=== PATIENT | female | born 1960 | race Caucasian/White ===

== ENCOUNTER 2023-01-29 09:12 | Emergency (ER) | payer MEDICARE, SELFPAY ==
--- NOTE | ~2023-01-29 | XR_ITS ---
AP, oblique, and lateral views of the right fourth toe CLINICAL HISTORY: Injury FINDINGS: There is a probable oblique, nondisplaced fracture through the mid to distal shaft of the f ourth proximal phalanx. No other fracture or dislocation seen. Joint spaces are preserved. Soft tissu es are unremarkable. IMPRESSION: Probable oblique, nondisplaced fracture of the fourth proximal phalanx, as detailed above. Reviewed, dictated and finalized at location M. IMPRESSION: Probable oblique, nondisplaced fracture of the fourth proximal phalanx, as deta iled above.
[2023-01-29 09:16] VITALS: BP 137/65; PULSE 101; RESP 18; TEMP 36.4; O2SAT 99
--- NOTE | 2023-01-29 09:26 | ED.LOWEXIN ---
HPI - Extremity Injury (Lower) General Chief Complaint: Extremity Injury, Lower Stated Complaint: toe injury Time Seen by Provider: 01/29/23 09:21 History of Present Illness HPI Narrative: 62-year-old female reports for evaluation of right fourth toe pain after she stubbed it on a chair about an hour and a half prior to arrival. Patient was wearing flip-flops at the time of injury. She reports pain and ecchymosis to the right fourth toe with mild pain to the right fifth toe. Denies paresthesias, lacerations or abrasions. Patient took 1000 mg of Tylenol about 2 hours ago. She is unable to take NSAIDs due to history of gastric bypass. Related Data Allergies Allergy/AdvReac Type Severity Reaction Status Date / Time No Known Allergies Allergy Verified 01/29/23 09:18 Review of Systems Review of Systems: CONSTITUTIONAL: Denies fever, chills EYES: Denies visual changes, redness, or discharge. ENT: Denies rhinorrhea, congestion, sore throat, or otalgia. CARDIOVASCULAR: Denies chest pain, palpitations, or edema. RESPIRATORY: Denies cough or dyspnea. GASTROINTESTINAL: Denies abdominal pain, nausea, vomiting, or diarrhea. GENITOURINARY: Denies dysuria or hematuria. SKIN: Denies rash or itching. MUSCULOSKELETAL: See HPI NEUROLOGIC: Denies headache, numbness, dizziness, or weakness. PSYCHIATRIC: Denies anxiety or depression. Exam Narrative: GENERAL: Well-appearing, well-nourished, and in no acute distress. Patient resting comfortably in exam bed. She is pleasant and conversational. HEAD: Normocephalic, atraumatic. NECK: Supple. CHEST: Clear to auscultation. No respiratory distress. No wheezes rales or rhonchi HEART: Regular rate and rhythm. No murmur heard. Normal peripheral pulses. EXTREMITIES: Tenderness to the right fourth toe with overlying ecchymosis and tenderness to the distal aspect of the right fifth toe. No tenderness to remaining right foot or toes. Full range of motion of toes. No lacerations or abrasions. Cap refill less than 2. DP pulse 2+. Sensation intact. SKIN: Warm, dry, no rash. NEURO: No focal deficits. Alert and oriented x3. PSYCH: Normal mood and affect. Course Vital Signs Vital signs: Vital Signs Temperature 97.6 F 01/29/23 09:16 Pulse Rate 101 H 01/29/23 09:16 Respiratory Rate 18 01/29/23 09:16 Blood Pressure 137/65 01/29/23 09:16 Pulse Oximetry 99 01/29/23 09:16 Oxygen Delivery Room Air 01/29/23 09:16 Temperature 97.6 F 01/29/23 09:16 Pulse Rate 101 H 01/29/23 09:16 Respiratory Rate 18 01/29/23 09:16 Blood Pressure 137/65 01/29/23 09:16 Pulse Oximetry 99 01/29/23 09:16 Oxygen Delivery Room Air 01/29/23 09:16 MDM - Extremity Injury (Lower) MDM Narrative Medical decision making narrative: 62-year-old female reports for evaluation of right fourth toe pain after she stubbed it on a chair while wearing flip-flops about an hour 0.5 prior to arrival. Exam reveals ecchymosis and tenderness to the right fourth toe, no overlying lacerations or abrasions. X-ray reveals a probable oblique nondisplaced fracture of the fourth proximal phalanx. Patient placed in a postop shoe with toe lola taped. Advised to follow-up with primary care provider within the next 3 days for reevaluation. Encouraged Tylenol for pain control and RICE. Strict ED return precautions provided. patient agrees to the plan and verbalizes understanding. All questions answered. Vitals remained stable. Patient discharged in stable condition Discharge Plan Discharge Clinical Impression: Fracture of toe of right foot Qualifiers: Encounter type: initial encounter Toe: lesser toe Fracture type: closed Phalanx: proximal Fracture alignment: nondisplaced Qualified Code(s): S92.514A - Nondisplaced fracture of proximal phalanx of right lesser toe(s), initial encounter for closed fracture Patient Disposition: Home, Self-Care Condition: Stable Instructions: Antibiotic Form, Toe
== END 2023-01-29 10:45 | disposition home or self-care (01) ==
LOC: ANHED 10:13
PROVIDERS: Emergency Provider Physician Assistant; PCP Nurse Practitioner Family
DX: S92.514A Nondisplaced fracture of proximal phalanx of right lesser toe(s), initial encounter for closed fracture (principal); W22.03XA Walked into furniture, initial encounter
CPT/HCPCS: 73660; 99284

== ENCOUNTER 2023-07-04 16:01 | Emergency (ER) | payer MEDICARE, MEDICAID, SELFPAY ==
--- NOTE | ~2023-07-04 | XR_ITS ---
EXAM: XR hip LT 2V w AP pelvis DATE: 07/04/2023 16:43 HISTORY: fall . COMPARISON: None available. FINDINGS: Decreased mineralization. Partially visualized right hip arthroplasty. Uncomplicated appea ring left hip arthroplasty. No fracture or dislocation. Heterotopic bone formation and calcification about the left hip No lytic or blastic lesion. Joint spaces are maintained. No erosion or periosteal change. Soft tissues within normal limits. IMPRESSION: No acute osseous finding in the pelvis or left hip. Reviewed, dictated and finalized at location K.
--- NOTE | ~2023-07-04 | CT_ITS ---
EXAMINATION: CT lumbar spine wo con DATE: 07/04/2023 17:59 INDICATION: fall, midline tenderness . TECHNIQUE: Computed tomography (CT) of the lumbar spine was performed without intravenous contrast. A utomated exposure control and iterative reconstruction technique were employed. The dose-length produ ct was 1306.22 mGy-cm. COMPARISON: None. FINDINGS: Decreased mineralization. Partially visualized line at the GE junction. Right upper pole re nal scarring. Atherosclerotic calcifications. Unfused right L1 transverse process. 5 nonrib-bearing l umbar-type vertebral bodies. Pedicles intact. Normal vertebral body alignment. Mild anterior wedge de formity at L1. Multilevel mild-moderate degenerative disc disease. Multilevel severe lower lumbar fac et arthropathy no severe neural foraminal narrowing. Moderate central canal stenosis at L4-5, seconda ry to diffuse disc bulge and degenerative facet change. IMPRESSION: Mild anterior wedge deformity at L1, may represent acute or chronic mild compression fracture, correl ate with pain/tenderness Reviewed, dictated and finalized at location K. IMPRESSION: Mild anterior wedge deformity at L1, may represent acute or chronic mild compre ssion fracture, correlate with pain/tenderness
[2023-07-04 16:04] VITALS: BP 132/72; PULSE 82; RESP 18; TEMP 36.2; O2SAT 97
--- NOTE | 2023-07-04 17:05 | ED.GENADULT ---
HPI - General Adult General Chief complaint: Fall Stated complaint: left hip pain Time Seen by Provider: 07/04/23 16:09 Source: patient Mode of arrival: ambulatory Limitations: no limitations History of Present Illness HPI narrative: This is a 63-year-old female who presents to the ED with chief complaint of left hip injury that occurred just prior to arrival. Patient reports she was walking through her house today when she accidentally tripped on a rug. She states she tried to tense up to avoid the fall but she eventually fell backwards onto her left posterior hip/buttock area. She is a little bit of reported back pain as well but notes a known stress fracture in the back. Denies any pops or cracks. Denies any further site of pain or injury. Denies numbness, weakness. Related Data Home Medications Medication Instructions Recorded Confirmed aripiprazole 15 mg tablet mg 01/29/23 atorvastatin 20 mg tablet mg 01/29/23 escitalopram oxalate 10 mg tablet mg 01/29/23 hydroxyzine pamoate 25 mg capsule mg 01/29/23 levothyroxine 125 mcg tablet mcg 01/29/23 lorazepam 0.5 mg tablet mg 01/29/23 promethazine 25 mg tablet mg 01/29/23 quetiapine 25 mg tablet mg 01/29/23 trazodone 50 mg tablet mg 01/29/23 venlafaxine 150 mg mg PO 01/29/23 capsule,extended release 24 hr venlafaxine 75 mg capsule,extended mg PO 01/29/23 release 24 hr Allergies Allergy/AdvReac Type Severity Reaction Status Date / Time No Known Allergies Allergy Verified 01/29/23 09:18 Review of Systems Review of Systems: All systems as dictated in HPI Exam Narrative: GENERAL: Well-appearing, well-nourished, and in no acute distress. HEAD: Normocephalic, atraumatic. EYES: PERRLA and EOMI. ENT: Nares clear, no rhinorrhea or epistaxis. Mucous membranes moist. Oropharynx without tonsillar hypertrophy exudate or other lesions. NECK: Supple. No adenopathy or masses. CHEST: No respiratory distress. Clear to auscultation. No wheezes rales or rhonchi HEART: Regular rate and rhythm. No murmur heard. Normal peripheral pulses. ABDOMEN: Soft, nontender, nondistended, normal active bowel sounds. MSK: Slightly reduced passive range of motion of the left hip due to pain. Tenderness to the left posterior hip/buttock. Mild tenderness to the lumbar spine midline. No step-off or deformity. SKIN: Warm, dry, no rash. NEURO: Alert and oriented x3. No focal deficits. PSYCH: Normal mood and affect. Course Vital Signs Vital signs: Vital Signs Temperature 97.2 F L 07/04/23 16:04 Pulse Rate 82 07/04/23 16:04 Respiratory Rate 18 07/04/23 16:04 Blood Pressure 132/72 07/04/23 16:04 Pulse Oximetry 97 07/04/23 16:04 Temperature 97.2 F L 07/04/23 16:04 Pulse Rate 82 07/04/23 16:04 Respiratory Rate 18 07/04/23 16:04 Blood Pressure 132/72 07/04/23 16:04 Pulse Oximetry 97 07/04/23 16:04 Medical Decision Making MDM Narrative Medical decision making narrative: This is a 63-year-old female who presents to the ED with chief complaint of a fall and left posterior hip pain. Fall was mechanical. Vitals are normal. Exam shows tenderness along the left buttock and left SI. Mild lumbar tenderness as well. She has known history of L1 compression deformity. Hip x-ray shows intact left hip prosthesis. Overall the x-ray is negative for any acute findings. CT lumbar reveals evidence of the L1 compression deformity but again this is an unknown problem to her already. No new findings. She improved with [place] here. Symptoms consistent with hip pain due to fall. Pt will be discharged in stable condition. Return precautions given and supportive measures discussed. Pt is understanding and agreeable with plan for discharge and follow-up with PCP. Vital Signs Vital Signs: Vital Signs Temperature 97.2 F L 07/04/23 16:04 Pulse Rate 82 07/04/23 16:04 Respiratory Rate 18 07/04/23 16:04 Blood Pressure 132/72 10/0
[2023-07-04] MEDS: HYDROcodone/acetaminophen (*CRX) 5-325 MG TABLET 1 TAB PO (17:11)
[2023-07-04 18:43] VITALS: BP 143/82; PULSE 63; RESP 18; O2SAT 98
--- NOTE | 2023-07-04 18:46 | PC.NURSE ---
TERESA [facility], at [facility] called for report. She states a account maintenance representative will be over shortly to picker/puller pt to bring back to [place].
== END 2023-07-04 19:01 | disposition home or self-care (01) ==
PROVIDERS: Emergency Provider Physician Assistant; PCP Nurse Practitioner Family
DX: S79.912A Unspecified injury of left hip, initial encounter (principal); R93.7 Abnormal findings on diagnostic imaging of other parts of musculoskeletal system; W18.09XA Striking against other object with subsequent fall, initial encounter
CPT/HCPCS: 72131; 73502; 99284; A9270

== ENCOUNTER 2024-08-11 12:51 | Inpatient (IN) | payer MEDICARE, MEDICAID, SELFPAY ==
[2024-08-11] VITALS (18 sets, daily range): BP systolic 133–158; BP diastolic 64–87; PULSE 60–77; RESP 16–18; TEMP 36.4; O2SAT 92–100
--- NOTE | ~2024-08-11 | CT_ITS ---
CLINICAL INDICATION: Epigastric pain with diarrhea and emesis. Personal history of gastric bypass victor manuel silviano. COMPARISON: None. TECHNIQUE: Multiple contiguous axial images of the abdomen and pelvis were performed following the ad ministration of with 100 mL Omnipaque-350 intravenous contrast The dose-length product (DLP) was 1371.03 mGy-cm. Automated exposure control and iterative reconstruction technique were employed. FINDINGS/OBSERVATIONS: Visualized lower thorax: Trace bibasilar atelectasis. The heart is of normal size, without pericardial effusion. Small hiatal hernia, inclusive of a portion of the staple line from prior gastric bypass surgery. Liver: The liver is enlarged measuring 22 cm in longitudinal dimension. Focal fatty sparing is identified within segment 4/5 of the liver. Gallbladder and biliary system: The gallbladder is surgically absent. Pancreas: Fatty atrophy of the pancreas. Spleen: The spleen enhances homogeneously and is not enlarged measuring 10 cm in longitudinal dimension. Kidneys: The bilateral kidneys enhance symmetrically without hydronephrosis or renal calculi. Adrenal glands: Unremarkable. Gastrointestinal tract: Mural thickening with edema is identified throughout the colon with surrounding inflammatory change, consistent with a tavera colitis. Moderate hiatal hernia which is inclusive of a portion of the enteric staple line from prior gastric bypass surgery. The excluded stomach contains fluid and is primarily decompressed. Appendix: The appendix is minimally distended measuring 7.6 mm in caliber but contains air at its tip. This is best identified on axial images, 113 through 120. The increase in caliber and appearance of the proxi mal appendix is likely secondary to the inflammation within the colon, rather than a primarily inflam ed appendix. Vasculature: Bulky calcification within the abdominal aorta without aneurysmal dilatation. Lymph nodes: No pathologically enlarged or morphologically suspicious lymph nodes within the retroperitoneum or at the root of the mesentery. Pelvic structures: Evaluation of the deep pelvis is markedly limited by metallic streak artifact from the patient's bila teral hip prostheses. Body wall and musculoskeletal: Complex fat-containing hernia involving the supraumbilical abdominal wall. Compression of the superior endplate of L1 is identified, age indeterminate. Moderate facet hypertrophy is present. No additional significant degenerative disease within the remainder of the lower thoracic and lumbosa cral spines. IMPRESSION: Findings consistent with a pancolitis, as detailed above. In addition, the patient has a small hiatal hernia which includes a portion of the enteric staple esme e from prior gastric surgery. Reviewed, dictated and finalized at location A. GER LOCAL IMPRESSION: Findings consistent with a pancolitis, as detailed above. In addition, the patient has a small hiatal hernia which includes a portion of the enteric staple line from prior gastric surgery.
--- NOTE | 2024-08-11 14:53 | ED_ITS ---
HPI - Abdominal Pain General Chief Complaint: Abdominal Pain <Clara Walton APRN - Last Filed: 08/11/24 19:32> Stated Complaint: abd pain <lCara Walton APRN - Last Filed: 08/11/24 19:32> Time Seen by Provider: 08/11/24 14:45 <Clara Walton APRN - Last Filed: 08/11/24 19:32> Focused HPI: Patient is a 64-year-old female who presents to the ER with a 10 day history of abdominal pain. She describes her pain as hunger pains along with nausea. Patient also endorses diarrhea, and small amounts of emesis. She reports she went to urgent care yesterday where they gave her Zofran advised her to come to the ER if her symptoms do not improved. Patient has a history of hypothyroidism and COPD. She denies chest pain, shortness of breath, or other signs of infection. GENERAL: Well-appearing, well-nourished, and in no acute distress. HEAD: Normocephalic, atraumatic. CHEST: Clear to auscultation. ?No respiratory distress. HEART: Regular rate and rhythm.? NEURO: ?Alert and oriented x3. Patient screened in triage and initial orders placed.? ?Additional care and disposition to be based upon?diagnostic testing and treatment. <Clara Walton APRN - Last Filed: 08/11/24 19:32> History of Present Illness HPI narrative: patient is a 64-year-old female presents emergency department chief complaint of abdominal pain. Patient reports he has prior history of gastric bypass reports that she has also had a cholecystectomy patient reports that she has been having pain and reports that she feels nauseated. patient reports she has had loose stools reports that the vomitus was a bile colored vomit patient denies fever <Obed Sanchez MD - Last Filed: 08/11/24 17:04> Related Data Home Medications: Home Medications Medication Instructions Recorded Confirmed aripiprazole 15 mg tablet mg 01/29/23 atorvastatin 20 mg tablet mg 01/29/23 escitalopram oxalate 10 mg tablet mg 01/29/23 hydroxyzine pamoate 25 mg capsule mg 01/29/23 levothyroxine 125 mcg tablet mcg 01/29/23 lorazepam 0.5 mg tablet mg 01/29/23 promethazine 25 mg tablet mg 01/29/23 quetiapine 25 mg tablet mg 01/29/23 trazodone 50 mg tablet mg 01/29/23 venlafaxine 150 mg mg PO 01/29/23 capsule,extended release 24 hr venlafaxine 75 mg capsule,extended mg PO 01/29/23 release 24 hr <Clara Walton APRN - Last Filed: 08/11/24 19:32> Allergies/Adverse Reactions: Allergies Allergy/AdvReac Type Severity Reaction Status Date / Time No Known Allergies Allergy Verified 08/11/24 12:55 <Clara Walton APRN - Last Filed: 08/11/24 19:32> Review of Systems Review of Systems: A 10 system review of systems was completed on the patient and is negative except for what is stated in the HPI. Nursing and ancillary documentation was reviewed. <Obed Sanchez MD - Last Filed: 08/11/24 17:04> Exam Narrative: GENERAL: Well-appearing, well-nourished, and in no acute distress. HEAD: Normocephalic, atraumatic. EYES: PERRLA and EOMI. ENT: Nares clear, no rhinorrhea or epistaxis. Mucous membranes moist. NECK: Supple. CHEST: Clear to auscultation. No respiratory distress. HEART: Regular rate and rhythm. No murmur heard. Normal peripheral pulses. ABDOMEN: Soft, diffuse tenderness to palpation, nondistended, normal active bowel sounds. EXTREMITIES: Normal range of motion. No edema. SKIN: Warm, dry, no rash. NEURO: No focal deficits. Alert and oriented x3. PSYCH: Normal mood and affect. <Obed Sanchez MD - Last Filed: 08/11/24 17:04> Course Vital Signs Vital signs: Vital Signs Temperature 36.4 C 08/11/24 12:53 Pulse Rate 77 08/11/24 12:53 Respiratory Rate 16 08/11/24 12:53 Blood Pressure 139/70 08/11/24 12:53 Pulse Oximetry 99 08/11/24 12:53 Oxygen Delivery Room Air 08/11/24 12:53 Temperature 36.4 C 08/11/24 12:53 Pulse Rate 60 08/11/24 18:32 Respiratory Rate 18 08/11/24 18:32 Blood Pressure 135/75 08/11/24 18:32 Pulse Oximetry 100 08/11/24 18:32 Oxygen Delivery Room Air 08/11/24 12:53 <Clara Walton, [employer] - Last Filed: 08/11/24 19:32> Vital Signs Temperature 36.4 C 08/11/24 12:53 Pulse Rate 77 08/11/24 12:53 Respiratory Rate 16 08/11/24 12:53 Blood Pressure 139/70 08/11/24 12:53 Pulse Oximetry 99 08/11/24 12:53 Oxygen Delivery Room Air 08/11/24 12:53 Temperature 36.4 C 08/11/24 12:53 Pulse Rate 60 08/11/24 18:32 Respiratory Rate 18 08/11/24 18:32 Blood Pressure 135/75 08/11/24 18:32 Pulse Oximetry 100 08/11/24 18:32 Oxygen Delivery Room Air 08/11/24 12:53 <Obed Sanchez MD - Last Filed: 08/11/24 17:04> MDM - Abdominal Pain Lab Data Result diagrams: 08/11/24 16:34 08/11/24 16:34 <Calra Walton, KEERTHI - Last Filed: 08/11/24 19:32> Labs: Lab Results 08/11/24 Range/Units 16:34 WBC 7.0 (4.5-10.0) K/mm3 RBC 4.68 (4.2-5.4) M/mm3 Hgb 14.9 (12.0-15.0) g/dL Hct 45.0 (37.0-47.0) % MCV 96.2 (80-100) fl MCH 31.8 (26-34) pg MCHC 33.1 (32-36) g/dl RDW 13.7 (11.5-14.5) % Plt Count 297 (150-375) k/mm3 MPV 10.0 (7.4-10.4) fl Immature Gran % (Auto) 0.4 (0-0.5) % Neut % (Auto) 58.1 (45.5-73.1) % Lymph % (Auto) 32.2 (18.3-44.2) % [place] % (Auto) 8.0 (2.6-8.5) % Eos % (Auto) 1.0 (0-4.4) % Baso % (Auto) 0.3 (0.2-1.2) % Lymph # (Auto) 2.26 (0.9-3.2) K/mm3 [place] # (Auto) 0.6 (0.1-0.6) K/mm3 Eos # (Auto) 0.1 (0-0.3) K/mm3 Baso # (Auto) 0.0 (0.0-0.1) K/mm3 Abs Immat Gran (auto) 0.03 (0.00-0.031) K/mm3 Absolute Neuts (auto) 4.1 (1.3-6.7) K/mm3 Absolute Nucleated RBC 0.000 (0.0-0.012) K/mm3 Nucleated RBC % 0.0 (0.0-0.2) % PT 12.9 (11.1-14.7) Seconds INR 0.9 APTT 31.0 (22.3-36.8) Seconds Sodium 135 L (137-145) mmol/L Potassium 4.0 (3.4-5.0) mmol/L Chloride 106 (98-107) mmol/L Carbon Dioxide 22 (22-30) mmol/L Anion Gap 7 (4-12) mmol/L BUN 11 (7-17) mg/dL Creatinine 1.00 (0.7-1.0) mg/dL Estim Creat Clear Calc 69 ml/min Estimated GFR 56 L (59 - ) Glucose 101 (65-110) mg/dL Calcium 9.4 (8.4-10.2) mg/dL Total Bilirubin 0.6 (0.2-1.3) mg/dL AST 32 (14-36) U/L ALT 22 (6-35) U/L Alkaline Phosphatase 120 (38-126) U/L Troponin I < 0.012 (0.000-0.034) ng/mL Total Protein 8.0 (6.3-8.2) g/dL Albumin 4.4 (3.5-5.1) g/dL Lipase 98 (23-300) U/L TSH (Reflex) 5.800 H (0.465-4.68) uIU/mL Free T4 1.31 (0.78-2.19) ng/dL Total T3 1.12 (0.97-1.69) NG/ML Urine Color Dark yellow (Yellow) Urine Appearance Cloudy H (Clear) Urine pH 5.5 (5.0-9.0) Ur Specific [place] 1.022 (1.001-1.035) Urine Protein Negative (Negative) mg/dL Urine Glucose (UA) Negative (Negative) mg/dL Urine Ketones 1+ H (Negative) mg/dL Ur Blood (Man) Negative (Negative) Urine Nitrate Negative (Negative) Urine Bilirubin 1+ H (Negative) Urine Urobilinogen 1.0 (<2.0) mg/dL Add Ur Microanalysis Reviewed Leukocyte Esterase Rfl 2+ H (Negative) [place]/UL Urine RBC 0-2 (0-2) /hpf Urine WBC 21-50 H (0-3) /hpf Ur Squamous Epith Cells Moderate (Few) /hpf Urine Bacteria 3+ H /hpf Urine Casts 11-20 <Clara Walton, [employer] - Last Filed: 08/11/24 19:32> Lab Results 08/11/24 Range/Units 16:34 WBC 7.0 (4.5-10.0) K/mm3 RBC 4.68 (4.2-5.4) M/mm3 Hgb 14.9 (12.0-15.0) g/dL Hct 45.0 (37.0-47.0) % MCV 96.2 (80-100) fl MCH 31.8 (26-34) pg MCHC 33.1 (32-36) g/dl RDW 13.7 (11.5-14.5) % Plt Count 297 (150-375) k/mm3 MPV 10.0 (7.4-10.4) fl Immature Gran % (Auto) 0.4 (0-0.5) % Neut % (Auto) 58.1 (45.5-73.1) % Lymph % (Auto) 32.2 (18.3-44.2) % [place] % (Auto) 8.0 (2.6-8.5) % Eos % (Auto) 1.0 (0-4.4) % Baso % (Auto) 0.3 (0.2-1.2) % Lymph # (Auto) 2.26 (0.9-3.2) K/mm3 [place] # (Auto) 0.6 (0.1-0.6) K/mm3 Eos # (Auto) 0.1 (0-0.3) K/mm3 Baso # (Auto) 0.0 (0.0-0.1) K/mm3 Abs Immat Gran (auto) 0.03 (0.00-0.031) K/mm3 Absolute Neuts (auto) 4.1 (1.3-6.7) K/mm3 Absolute Nucleated RBC 0.000 (0.0-0.012) K/mm3 Nucleated RBC % 0.0 (0.0-0.2) % PT 12.9 (11.1-14.7) Seconds INR 0.9 APTT 31.0 (22.3-36.8) Seconds Sodium 135 L (137-145) mmol/L Potassium 4.0 (3.4-5.0) mmol/L Chloride 106 (98-107) mmol/L Carbon Dioxide 22 (22-30) mmol/L Anion Gap 7 (4-12) mmol/L BUN 11 (7-17) mg/dL Creatinine 1.00 (0.7-1.0) mg/dL Estim Creat Clear Calc 69 ml/min Estimated GFR 56 L (59 - ) Glucose 101 (65-110) mg/dL Calcium 9.4 (8.4-10.2) mg/dL Total Bilirubin 0.6 (0.2-1.3) mg/dL AST 32 (14-36) U/L ALT 22 (6-35) U/L Alkaline Phosphatase 120 (38-126) U/L Troponin I < 0.012 (0.000-0.034) ng/mL Total Protein 8.0 (6.3-8.2) g/dL Albumin 4.4 (3.5-5.1) g/dL Lipase 98 (23-300) U/L TSH (Reflex) 5.800 H (0.465-4.68) uIU/mL Free T4 1.31 (0.78-2.19) ng/dL Total T3 1.12 (0.97-1.69) NG/ML Urine Color Dark yellow (Yellow) Urine Appearance Cloudy H (Clear) Urine pH 5.5 (5.0-9.0) Ur Specific [place] 1.022 (1.001-1.035) Urine Protein Negative (Negative) mg/dL Urine Glucose (UA) Negative (Negative) mg/dL Urine Ketones 1+ H (Negative) mg/dL Ur Blood (Man) Negative (Negative) Urine Nitrate Negative (Negative) Urine Bilirubin 1+ H (Negative) Urine Urobilinogen 1.0 (<2.0) mg/dL Add Ur Microanalysis Reviewed Leukocyte Esterase Rfl 2+ H (Negative) [facility]/UL Urine RBC 0-2 (0-2) /hpf Urine WBC 21-50 H (0-3) /hpf Ur Squamous Epith Cells Moderate (Few) /hpf Urine Bacteria 3+ H /hpf Urine Casts 11-20 <Obed Sanchez MD - Last Filed: 08/11/24 17:04> Imaging Data Radiologist's impression: ITS Impressions Abdomen/Pelvis CT 08/11/24 17:34 IMPRESSION: Findings consistent with a pancolitis, as detailed above. In addition, the patient has a small hiatal hernia which includes a portion of the enteric staple line from prior gastric surgery. <Clara Walton APRN - Last Filed: 08/11/24 19:32> ITS Impressions Abdomen/Pelvis CT 08/11/24 17:34 IMPRESSION: Findings consistent with a pancolitis, as detailed above. In addition, the patient has a small hiatal hernia which includes a portion of the enteric staple line from prior gastric surgery. <Obed Sanchez MD - Last Filed: 08/11/24 17:04> Discharge Plan Discharge Clinical Impression: Urinary tract infection <Clara Walton APRN - Last Filed: 08/11/24 19:32> Patient Disposition: Home, Self-Care <Clara Walton APRN - Last Filed: 08/11/24 19:32> Condition: Stable <Clara Walton APRN - Last Filed: 08/11/24 19:32> Instructions: Antibiotic Form <Clara Walton APRN - Last Filed: 08/11/24 19:32> Prescriptions: No Action quetiapine 25 mg tablet venlafaxine 75 mg capsule,extended release 24hr PO atorvastatin 20 mg tablet trazodone 50 mg tablet venlafaxine 150 mg capsule,extended release 24hr PO lorazepam 0.5 mg tablet levothyroxine 125 mcg tablet promethazine 25 mg tablet hydroxyzine pamoate 25 mg capsule escitalopram oxalate 10 mg tablet aripiprazole 15 mg tablet <Clara Walton APRN - Last Filed: 08/11/24 19:32> Follow-up/Referrals: Garza,Ni Gupta APRN [Primary Care Provider] - <Clara Walton APRN - Last Filed: 08/11/24 19:32>
[2024-08-11 16:41] LABS: Basophils Percent Auto 0.3 % (0.2-1.2); Eosinophils Absolute Auto 0.1 K/mm3 (0-0.3); Hemoglobin 14.9 g/dL (12.0-15.0); Immature Granulocyte Absolute 0.03 K/mm3 (0.00-0.031); Immature Granulocyte Percent A 0.4 % (0-0.5); Lymphocytes Absolute Auto 2.26 K/mm3 (0.9-3.2); Lymphocytes Percent Auto 32.2 % (18.3-44.2); Mean Corpuscular HGB Conc 33.1 g/dl (32-36); Mean Corpuscular Hemoglobin 31.8 pg (26-34); Mean Corpuscular Volume 96.2 fl (80-100); Monocytes Absolute Auto 0.6 K/mm3 (0.1-0.6); Neutrophils Absolute Auto 4.1 K/mm3 (1.3-6.7); Neutrophils Percent Auto 58.1 % (45.5-73.1); Platelet Count Result 297 k/mm3 (150-375); Red Blood Count 4.68 M/mm3 (4.2-5.4); Red Cell Distribution Width 13.7 % (11.5-14.5)
[2024-08-11 16:51] LABS: Alanine Aminotransferase 22 U/L (6-35); Albumin Level 4.4 g/dL (3.5-5.1); Alkaline Phosphatase 120 U/L (38-126); Anion Gap 7 mmol/L (4-12); Aspartate Amino Transferase 32 U/L (14-36); Bilirubin,Total 0.6 mg/dL (0.2-1.3); Blood Urea Nitrogen 11 mg/dL (7-17); Calcium 9.4 mg/dL (8.4-10.2); Carbon Dioxide 22 mmol/L (22-30); Chloride 106 mmol/L (98-107); Estimated CRCL calculation 69 ml/min; Estimated Glomerular Filt Rate 56; Glucose 101 mg/dL (65-110); Lipase 98 U/L (23-300); Sodium 135 mmol/L (137-145)
[2024-08-11 16:52] LABS: INR 0.9; Prothrombin Time 12.9 Seconds (11.1-14.7)
[2024-08-11 17:03] LABS: Troponin I < 0.012 ng/mL (0.000-0.034)
[2024-08-11 17:10] LABS: Add Urine Microscopic? YES; Appearance Urine Cloudy (Clear); Bacteria Urine 3+ /hpf; Bilirubin Urine 1+ (Negative); Blood Urine Negative (Negative); Color Urine Dark Yellow (Yellow); Glucose Urine UA Negative (Negative); Ketones Urine 1+ mg/dL (Negative); Leukocyte Esterase Ur 2+ LEU/UL (Negative); Need Manual Microscopic Reviewed; Nitrate Urine Negative (Negative); Protein Urine Negative (Negative); RBC Urine 0-2 /hpf (0-2); Specific Grav Ur 1.022 (1.001-1.035); Squamous Epithelial Cell Urine Moderate /hpf (Few); WBC Urine 21-50 /hpf (0-3); pH Urine 5.5 (5.0-9.0)
--- NOTE | 2024-08-11 17:11 | PC.NURSE ---
patient to CT
[2024-08-11] MEDS: SODIUM CHLORIDE 0.9% IV 1,000 ML 999 ML IV CONT (17:22)
[2024-08-11] MEDS: PANTOPRAZOLE SODIUM IV 40 MG VIAL IV PUSH (17:22)
[2024-08-11] MEDS: ONDANSETRON INJ 4 MG/2 ML VIAL IV PUSH (17:22)
[2024-08-11 18:04] LABS: Free T4 Free Thyroxine Reflex 1.31 ng/dL (0.78-2.19)
[2024-08-11 18:44] LABS: Total Triiodothyronine (T3) 1.12 NG/ML (0.97-1.69)
--- NOTE | 2024-08-11 19:16 | PC.NURSE ---
Report received from TERESA Grewal. Assumed care of patient at this time.
--- NOTE | 2024-08-11 19:45 | PM.IMHP ---
H&P: HPI History of Present Illness Date/Time: 08/11/24 19:00 Chief Complaint: Abdominal pain. Narrative: This is a 64-year-old female with history of gastric stapling in 1994, hypothyroidism, anxiety, depression, posttraumatic stress disorder, and suicide attempt who presented to the emergency department via private vehicle for evaluation of abdominal pain. The patient provides the following history. She has not been feeling well for about 10 days and describes ongoing periumbilical abdominal discomfort which she describes as ?almost like hunger pains? associated with nausea and intermittent loose stools. She has not noticed any blood or mucus in the stools. She denies recent travel, antibiotic use, and sick contacts. She also denies fever, chills, sweats, epigastric pain, vomiting, and dysuria. Of note the patient's [place] Scale was elevated due to history of depression and suicide attempt. She has no thoughts of suicide or other harmful thoughts. In the ED: She was afebrile on arrival with stable vital signs. CMP and CBC were pretty unremarkable door sodium was a bit low 135. Urinalysis was positive for 1+ protein, 2+ leukocyte esterase, 21 to 50 WBC, 3+ bacteria, and moderate squamous cells. CT of the abdomen and pelvis showed findings consistent with pancolitis and a small hiatal hernia which includes a portion of the enteric stable and from prior gastric surgery. She was given a L of normal saline and was started on ceftriaxone and metronidazole. She is being admitted in this setting for further treatment and workup. Review of Systems Review of Systems: 12 systems were reviewed and are negative except for as per HPI. FORMERLY [facility] Past Medical History Medical History (Updated 08/12/24 @ 13:25 by Beryl Roberts PA-C) Depression with anxiety Hypothyroidism Posttraumatic stress disorder Suicide attempt Surgical History Surgical History (Updated 08/12/24 @ 13:25 by Beryl Roberts PA-C) History of bilateral hip arthroplasty History of cholecystectomy History of gastric stapling Family History Family History Father Alcohol abuse Mother COPD (chronic obstructive pulmonary disease) Social History Social History (Updated 08/12/24 @ 13:25 by Berly Roberts PA-C) Social History: Surrogate medical decision maker: Glen Prince, significant other. Code status: Full code. Smoking status: Former smoker Tobacco type: cigarettes Alcohol intake: never Substance use: current Substance use type: marijuana Other substance usage details: daily for pain Do You Feel Safe in your Home?: Yes Lack of Transportation: No Lack of Food: Never True Current Housing: I Have Housing Concerned About Future Housing: No Difficulty Paying Gas/Electric Bills: No Difficulty Paying for Meds: No Currently Unemployed: No Education: High School Diploma/GED Difficulty w/ Childcare or Family Care: No Spiritual care concerns: No Meds Home Medications and Allergies Home Medications Medication Instructions Recorded Confirmed Type acetaminophen 325 mg tablet 650 mg PO PRN PRN Pain (Scale 08/11/24 08/11/24 History Score 1-3) albuterol sulfate 90 mcg/actuation 2 inh inhalation PRN 08/11/24 08/11/24 History aerosol inhaler aspirin 81 mg tablet 81 mg PO DAILY 08/11/24 08/11/24 History budesonide-formoterol HFA 160 1 inh inhalation BID 08/11/24 08/11/24 History mcg-4.5 mcg/actuation aerosol inhaler (Symbicort) clonazepam 0.5 mg tablet 0.5 mg PO DAILY 08/11/24 08/11/24 History levothyroxine 150 mcg tablet 150 mcg PO DAILY 08/11/24 08/11/24 History multivitamin with minerals-folic 1 tablet PO DAILY 08/11/24 08/11/24 History acid 0.4 mg tablet oxybutynin chloride 5 mg 5 mg PO DAILY 08/11/24 08/11/24 History tablet,extended release 24 hr vilazodone 40 mg tablet 40 mg PO DAILY 08/11/24 08/11/24 History Allergies Allergy/AdvReac Type Severity Reaction Status Date / Time No Known Allergies Allergy Verified 08/11/24 12:55 Vital Signs Vital Signs - 24 hr 08/11/24 12:53 08/11/24 16:42 08/11/24 16:42 Temperature 97.6 F Pulse Rate 77 73 Respiratory Rate 16 18 Blood Pressure 139/70 158/86 H Pulse Oximetry 99 96 98 Oxygen Delivery Room Air 08/11/24 16:45 08/11/24 16:47 08/11/24 17:00 Temperature Pulse Rate Respiratory Rate Blood Pressure 153/79 H Pulse Oximetry 92 96 95 Oxygen Delivery 08/11/24 17:25 08/11/24 17:30 08/11/24 17:32 Temperature Pulse Rate Respiratory Rate Blood Pressure 140/64 Pulse Oximetry 98 96 94 Oxygen Delivery 08/11/24 17:45 08/11/24 17:47 08/11/24 18:00 Temperature Pulse Rate Respiratory Rate Blood Pressure 133/65 Pulse Oximetry 95 96 98 Oxygen Delivery 08/11/24 18:01 08/11/24 18:15 08/11/24 18:30 Temperature Pulse Rate Respiratory Rate Blood Pressure 141/65 H Pulse Oximetry 100 94 97 Oxygen Delivery 08/11/24 18:32 Temperature Pulse Rate 60 Respiratory Rate 18 Blood Pressure 135/75 Pulse Oximetry 100 Oxygen Delivery Exam Narrative: General: Nontoxic-appearing female sitting up in bed. Weight: 125 kg. BMI: 44.5. HEENT: PERRL, EOMI. Sclera anicteric. Oral mucosa moist. Tacky mucous membranes. Neck: Supple. Respiratory: Lungs are clear to auscultation bilaterally. Cardiovascular: Regular rate and rhythm with S1-S2. Gastrointestinal: Abdomen is soft and nondistended with positive bowel sounds. She slightly tender to palpation the periumbilical region. No voluntary guarding or rebound tenderness. Skin: Warm and dry. Extremities: No cyanosis, clubbing, or edema. Radial and pedal pulses intact. Neurological: Alert. Cranial nerves 2-12 are grossly intact. No gross focal deficits to casual conversation. Psychiatric: Pleasant and cooperative with appropriate mood and flat affect. H&P: Results Labs Labs: Short CBC 08/11/24 Range/Units 16:34 WBC 7.0 (4.5-10.0) K/mm3 Hgb 14.9 (12.0-15.0) g/dL Hct 45.0 (37.0-47.0) % Plt Count 297 (150-375) k/mm3 BMP 08/11/24 16:34 Sodium 135 L Potassium 4.0 Chloride 106 Carbon Dioxide 22 BUN 11 Creatinine 1.00 Glucose 101 Calcium 9.4 Cardiac Enzymes 08/11/24 Range/Units 16:34 Troponin I < 0.012 (0.000-0.034) ng/mL Liver Function 08/11/24 Range/Units 16:34 Total Bilirubin 0.6 (0.2-1.3) mg/dL AST 32 (14-36) U/L ALT 22 (6-35) U/L Alkaline Phosphatase 120 (38-126) U/L Albumin 4.4 (3.5-5.1) g/dL Urine 08/11/24 Range/Units 16:34 Urine Color Dark yellow (Yellow) Urine Appearance Cloudy H (Clear) Urine pH 5.5 (5.0-9.0) Ur Specific [place] 1.022 (1.001-1.035) Urine Protein Negative (Negative) mg/dL Urine Glucose (UA) Negative (Negative) mg/dL Imaging Abdomen/Pelvis CT 08/11/24 17:34 IMPRESSION: Findings consistent with a pancolitis, as detailed above. In addition, the patient has a small hiatal hernia which includes a portion of the enteric staple line from prior gastric surgery. Assessment and Plan Assessment and plan (1) Pancolitis: Code(s): K51.00 - Ulcerative (chronic) pancolitis without complications Status: Acute (2) Mild dehydration: Code(s): E86.0 - Dehydration Status: Acute (3) Bacteriuria with pyuria: Code(s): R82.71 - Bacteriuria; R82.81 - Pyuria Status: Acute (4) Depression with anxiety: Code(s): F41.8 - Other specified anxiety disorders Status: Acute (5) Posttraumatic stress disorder: Code(s): F43.10 - Post-traumatic stress disorder, unspecified Status: Acute (6) Hypothyroidism: Code(s): E03.9 - Hypothyroidism, unspecified Status: Acute Plan The patient presented to the emergency department for evaluation of ongoing abdominal discomfort for the past 10 days as detailed in HPI. Labs, imaging, EKG, and all reports were personally reviewed. CT scan shows evidence of pancolitis and she has been started on ceftriaxone and metronidazole per antibiotic stewardship recommendations. Stool studies are pending. She looks dry on exam and by labs and will be hydrated overnight. WBCs and bacteria were noted on urine microscopy however she has no urinary symptoms and the specimen looks contaminated. Vital signs were reviewed and they are stable. Continue levothyroxine and check TSH. She reports that her anxiety, depression, and PTSD are well controlled on home medications and she has no harmful thoughts. Her home medications will be reviewed and resumed as appropriate. Findings and treatment plan were discussed with the patient. Questions were solicited and answered to satisfaction. The patient's medical management will be taken over by the hospitalist team in a.m. Quality VTE Prophylaxis VTE prophylaxis: mechanical ordered The patient has been admitted under observation status. Hospitalist MIPS Advance Care Plan I have confirmed that the patient's Advanced Care Plan is present, code status is documented, or surrogate decision maker is listed in patient medical record.: Yes Medication Reconciliation I have utilized all available resources to obtain, update and review the patients current medications (includes all prescriptions, OTC, herbals, cannabis, and nutritional supplements).: Yes
[2024-08-11] MEDS: metroNIDAZOLE 500 MG/ISO 100ML 500 MG/100 ML BAG 100 MG IVPB (19:50)
[2024-08-11] MEDS: MORPHINE SULFATE (*CRX) 4 MG/ML INJ IV PUSH ×2 (19:55→23:43)
--- NOTE | 2024-08-11 20:42 | ADMGEN ---
This patient, Joy Charles, was admitted to Medical Room 255-01. Patient/family oriented to hospital policies and general routines including ID bracelet, bed and alarms, visiting hours, pain management, procedures, bathroom and other care routines, personal items, smoking policy, room service/diet, and visiting hours. Information on how to activate the Rapid Response Team has been discussed. Patient/Family are encouraged to report perceived risks to care and to ask questions if they do not understand what they are told or what they should do.
[2024-08-11] MEDS: clonazePAM (*CRX) 0.5 MG TABLET 1 MG PO (21:45)
[2024-08-11] MEDS: DEXTROSE 5%/0.9% SOD CHL 1,000 ML 100 ML IV CONT (23:53)
[2024-08-12 05:10] VITALS: BP 118/64; PULSE 61; RESP 20; TEMP 36.5; O2SAT 97
[2024-08-12] MEDS: LEVOTHYROXINE SODIUM 150 MCG TABLET PO (05:37)
[2024-08-12] MEDS: ACETAMINOPHEN 325 MG TABLET 650 MG PO (05:37)
[2024-08-12] MEDS: metroNIDAZOLE 500 MG/ISO 100ML 500 MG/100 ML BAG 100 MG IVPB ×3 (05:37→21:10)
[2024-08-12 05:43] LABS: Hemoglobin 13.5 g/dL (12.0-15.0); Mean Corpuscular HGB Conc 32.1 g/dl (32-36); Mean Corpuscular Hemoglobin 31.9 pg (26-34); Mean Corpuscular Volume 99.3 fl (80-100); Mean Platelet Volume 10.1 fl (7.4-10.4); Platelet Count Result 223 k/mm3 (150-375); Red Blood Count 4.23 M/mm3 (4.2-5.4); Red Cell Distribution Width 13.7 % (11.5-14.5); White Blood Count 4.1 K/mm3 (4.5-10.0)
[2024-08-12 05:55] LABS: Anion Gap 4 mmol/L (4-12); Blood Urea Nitrogen 9 mg/dL (7-17); Calcium 8.5 mg/dL (8.4-10.2); Carbon Dioxide 27 mmol/L (22-30); Chloride 107 mmol/L (98-107); Estimated CRCL calculation 76 ml/min; Estimated Glomerular Filt Rate > 60; Glucose 111 mg/dL (65-110); Magnesium 2.2 mg/dL (1.6-2.3); Potassium 3.8 mmol/L (3.4-5.0); Sodium 138 mmol/L (137-145)
[2024-08-12] MEDS: clonazePAM (*CRX) 0.5 MG TABLET PO (08:57)
[2024-08-12] MEDS: ASPIRIN 81 MG ENTERIC TABLET PO (08:57)
[2024-08-12] MEDS: oxyBUTYnin CHLORIDE XL 5 MG TAB.ER.24 PO (08:57)
[2024-08-12] MEDS: FLUTICASONE/SALMETEROL 115-21 MCG INHALER 1 PUFF 2 PUFF INHALATION (09:02)
[2024-08-12] MEDS: MORPHINE SULFATE (*CRX) 4 MG/ML INJ 2 MG IV PUSH (11:26)
[2024-08-12] MEDS: ONDANSETRON INJ 4 MG/2 ML VIAL IV PUSH ×2 (12:14→21:13)
--- NOTE | 2024-08-12 13:09 | PHAR ---
The patient's home med of Vilazodone 40mg has been verified.
[2024-08-12] MEDS: VILAZODONE 40 MG PO (13:35)
[2024-08-12] MEDS: [UNRECOGNIZED DRUG - OTHER] PO (13:35)
[2024-08-12 14:00] VITALS: BP 120/72; PULSE 64; RESP 18; TEMP 36.4; O2SAT 96
[2024-08-12] MEDS: SODIUM CHLORIDE 0.9% IV 1,000 ML 75 ML IV CONT (15:27)
[2024-08-12] MEDS: HYDROmorphone HCL INJ (*CRX) 1 MG/ML SYR IV PUSH ×2 (15:34→21:14)
--- NOTE | 2024-08-12 16:35 | P.PNIM_ITS ---
Progress Note: A&P Assessment and Plan (1) Pancolitis: Code(s): K51.00 - Ulcerative (chronic) pancolitis without complications Status: Acute Assessment and Plan: * CT abdomen showing pancolitis * Flagyl and Rocephin * Pain control * IV fluids * PPI * WBC 4.1, afebrile * Stool studies pending * Monitor electrolytes replenish as needed (2) Mild dehydration: Code(s): E86.0 - Dehydration Status: Acute Assessment and Plan: RESOLVED with IV fluids (3) Depression with anxiety: Code(s): F41.8 - Other specified anxiety disorders Status: Acute Assessment and Plan: * Resumed home medications * HX of suicidal attempt * current MDR treatment * extrememly anxious * Antianxiety medication added as needed (4) Posttraumatic stress disorder: Code(s): F43.10 - Post-traumatic stress disorder, unspecified Status: Acute Assessment and Plan: * Current MDR treatment * resumed home medications * daily [place]umb[place] scale (5) Hypothyroidism: Code(s): E03.9 - Hypothyroidism, unspecified Status: Acute Assessment and Plan: * Resume levothyroxine Plan Code status: Full code per patient DVT prophylaxis: SCDs Stress ulcer prophylaxis: Protonix 40 daily PT/OT notes: Ambulatory Disposition: Patient admitted for pain colitis will continue with IV antibiotic therapy and pain control currently unable to tolerate oral intake well since pain is controlled and patient can not tolerate oral intake she can discharged home. Time Spent With Patient Time with patient: 15 - 25 minutes Subjective Date/time seen: 08/12/24 16:35 Interval history: Patient is a 64-year-old female admitted to the medical unit for further evaluation and treatment of pancolitis. 08/12/2024: Assumed Care Patient tearful suffers from MDD and PTSD going through current MDR treatment. She is still reporting moderate ABD pain and unable to tolerate oral intake. Denied CP, SOB, dizziness, fever or chills but endorsed nausea no vomiting. Continues to have diarrhea. Review of Systems Review of Systems: Reports severe anxiety All systems reviewed & are unremarkable except as noted in HPI and below Exam Narrative: * GENERAL: Alert and oriented x 3. No acute distress. Tearful and anxious pleasant female * EYES: EOMI. No scleral icterus. PERRLA. * HEENT: Moist mucous membranes. * LUNGS: Clear to auscultation bilaterally. No accessory muscle use. * CARDIOVASCULAR: Regular rate and rhythm. No murmur. No JVD. S1-S2 * ABDOMEN: Soft, tenderness and non-distended. No palpable masses. * EXTREMITIES: No edema. Non-tender * SKIN: No rashes or lesions. Skin warm, dry. * NEUROLOGIC: No focal neurological deficits. CN II-XII grossly intact * PSYCHIATRIC: Tearful mood and withdrawn affect. Good judgement and insight. No visual or auditory hallucinations. No suicidal or homicidal ideation. Previous suicidal attempt and HX of PTSD Objective Data Vital Signs Vital Signs: Vital Signs - 24 hr 08/11/24 16:42 08/11/24 16:42 08/11/24 16:45 Temperature Pulse Rate 73 Respiratory Rate 18 Blood Pressure 158/86 H Pulse Oximetry 96 98 92 Oxygen Delivery 08/11/24 16:47 08/11/24 17:00 08/11/24 17:25 Temperature Pulse Rate Respiratory Rate Blood Pressure 153/79 H Pulse Oximetry 96 95 98 Oxygen Delivery 08/11/24 17:30 08/11/24 17:32 08/11/24 17:45 Temperature Pulse Rate Respiratory Rate Blood Pressure 140/64 Pulse Oximetry 96 94 95 Oxygen Delivery 08/11/24 17:47 08/11/24 18:00 08/11/24 18:01 Temperature Pulse Rate Respiratory Rate Blood Pressure 133/65 141/65 H Pulse Oximetry 96 98 100 Oxygen Delivery 08/11/24 18:15 08/11/24 18:30 08/11/24 18:32 Temperature Pulse Rate 60 Respiratory Rate 18 Blood Pressure 135/75 Pulse Oximetry 94 97 100 Oxygen Delivery 08/11/24 19:55 08/11/24 20:00 08/11/24 20:15 Temperature Pulse Rate 65 69 69 Respiratory Rate 17 17 17 Blood Pressure 140/87 140/87 Pulse Oximetry 97 95 95 Oxygen Delivery Room Air 08/12/24 05:10 08/12/24 09:00 08/12/24 14:00 Temperature 97.7 F 97.6 F Pulse Rate 61 64 Respiratory Rate 20 18 Blood Pressure 118/64 120/72 Pulse Oximetry 97 96 Oxygen Delivery Room Air Intake/Output Intake/Output: Intake & Output 08/09/24 08/10/24 08/11/24 08/12/24 23:59 23:59 23:59 23:59 Intake Total 1287 1094 Output Total 300 Balance 1287 794 Meds/Results Medications: Active Medications Generic Name Dose Route Start Last Admin Trade Name Freq PRN Reason Stop Dose Admin Acetaminophen 650 mg 08/11/24 23:37 08/12/24 05:37 Acetaminophen 325 Mg Tablet PO 650 mg Q6H PRN Administration Mild Pain (1-3) or Fever Aspirin 81 mg 08/12/24 09:00 08/12/24 08:57 Aspirin 81 Mg Enteric Tablet PO 09/11/24 08:59 81 mg DAILY FRANKLIN Administration Clonazepam 0.5 mg 08/12/24 09:00 08/12/24 08:57 Clonazepam (*Crx) 0.5 Mg Tablet PO 0.5 mg DAILY FRANKLIN Administration Clonazepam 1 mg 08/12/24 14:06 Clonazepam (*Crx) 0.5 Mg Tablet PO Q8H PRN Anxiety Hydromorphone HCl 1 mg 08/12/24 14:05 08/12/24 15:34 Hydromorphone Hcl Inj (*Crx) 1 Mg/Ml Syr IV PUSH 1 mg Q3H PRN Administration Pain Rated 7-10 Ceftriaxone Sodium 1 gm in 50 mls @ 100 mls/hr 08/11/24 18:10 08/11/24 21:14 Rocephin 1 Gm/Ns 50 Ml IVPB 100 mls/hr Q24H FRANKLIN Administration Metronidazole 500 mg in 100 mls @ 100 mls/hr 08/12/24 05:00 08/12/24 14:35 Flagyl 500 Mg/Iso Soln 100 Ml IVPB Infused Q8HR FRANKLIN Infusion Sodium Chloride 1,000 mls @ 75 mls/hr 08/12/24 14:10 08/12/24 15:27 Normal Saline Iv IV CONT 75 mls/hr .[id number] FRANKLIN Administration Levothyroxine Sodium 150 mcg 08/12/24 06:30 08/12/24 05:37 Levothyroxine Sodium 150 Mcg Tablet PO 150 mcg DAILY@0630 FRANKLIN Administration Multivitamins/Calcium 1 tablet 08/12/24 12:00 08/12/24 11:26 Therapeutic Multivitamins/Minerals Tab (*Bkc) PO Not Given DAILY@1200 [facility] Nonformulary Drug 0 mg 08/12/24 13:10 08/12/24 13:35 Vilazodone 40 Mg PO 09/11/24 13:09 40 mg Tablet DAILY FRANKLIN Administration Ondansetron HCl 4 mg 08/11/24 18:09 08/12/24 12:14 Ondansetron Inj 4 Mg/2 Ml Vial IV PUSH 4 mg Q4H PRN Administration Nausea Oxybutynin Chloride 5 mg 08/12/24 09:00 08/12/24 08:57 Oxybutynin Chloride Xl 5 Mg Tab.Er.24 PO 5 mg DAILY FRANKLIN Administration Pantoprazole Sodium 40 mg 08/12/24 21:00 Pantoprazole Sodium Iv 40 Mg Vial IV PUSH Q12HR FRANKLIN Fluticasone/Salmeterol 2 puff 08/12/24 08:00 08/12/24 09:02 Fluticasone/Salmeterol 115-21 Mcg Inhaler 1 Puff INHALATION 2 puff Q12HRT FRANKLIN Administration Trazodone HCl 50 mg 08/11/24 23:39 Trazodone Hcl 50 Mg Tablet PO HS PRN Insomnia Radiology Results: ITS Impressions Abdomen/Pelvis CT 08/11/24 17:34 IMPRESSION: Findings consistent with a pancolitis, as detailed above. In addition, the patient has a small hiatal hernia which includes a portion of the enteric staple line from prior gastric surgery. Labs Labs: Laboratory Results - last 24 hr 08/11/24 08/12/24 16:34 05:09 WBC 7.0 4.1 L RBC 4.68 4.23 Hgb 14.9 13.5 Hct 45.0 42.0 MCV 96.2 99.3 MCH 31.8 31.9 MCHC 33.1 32.1 RDW 13.7 13.7 Plt Count 297 223 MPV 10.0 10.1 Immature Gran % (Auto) 0.4 Neut % (Auto) 58.1 Lymph % (Auto) 32.2 Boyle % (Auto) 8.0 Eos % (Auto) 1.0 Baso % (Auto) 0.3 Lymph # (Auto) 2.26 Boyle # (Auto) 0.6 Eos # (Auto) 0.1 Baso # (Auto) 0.0 Abs Immat Gran (auto) 0.03 Absolute Neuts (auto) 4.1 Absolute Nucleated RBC 0.000 Nucleated RBC % 0.0 PT 12.9 INR 0.9 APTT 31.0 Sodium 135 L 138 Potassium 4.0 3.8 Chloride 106 107 Carbon Dioxide 22 27 Anion Gap 7 4 BUN 11 9 Creatinine 1.00 0.90 Estim Creat Clear Calc 69 76 Estimated GFR 56 L > 60 Glucose 101 111 H Calcium 9.4 8.5 Magnesium 2.2 Total Bilirubin 0.6 AST 32 ALT 22 Alkaline Phosphatase 120 Troponin I < 0.012 Total Protein 8.0 Albumin 4.4 Lipase 98 TSH (Reflex) 5.800 H Free T4 1.31 Total T3 1.12 Urine Color Dark yellow Urine Appearance Cloudy H Urine pH 5.5 Ur Specific [place] 1.022 Urine Protein Negative Urine Glucose (UA) Negative Urine Ketones 1+ H Ur Blood (Man) Negative Urine Nitrate Negative Urine Bilirubin 1+ H Urine Urobilinogen 1.0 Add Ur Microanalysis Reviewed Leukocyte Esterase Rfl 2+ H Urine RBC 0-2 Urine WBC 21-50 H Ur Squamous Epith Cells Moderate Urine Bacteria 3+ H Urine Casts 11-20 Quality VTE Prophylaxis VTE prophylaxis: mechanical ordered -Patient's previous records reviewed on admission -ER notes reviewed in detail on admission -discussed all findings and current treatment plan with patient/Family/POA -Consultations reviewed for recommendations -Patient's disposition for safe discharge discussed with director of casework Dictation performed by [employer] direct speech recognition software, therefore technical sales advisor variants and typographical errors may occur. Hospitalist MIPS Advance Care Plan I have confirmed that the patient's Advanced Care Plan is present, code status is documented, or surrogate decision maker is listed in patient medical record.: Yes Medication Reconciliation I have utilized all available resources to obtain, update and review the patients current medications (includes all prescriptions, OTC, herbals, cannabis, and nutritional supplements).: Yes The patient is not eligible for med reconciliation; the patient is in a emergent medical situation where delaying treatment would jeopardize the patients health.: No
[2024-08-12] MEDS: clonazePAM (*CRX) 0.5 MG TABLET 1 MG PO (19:51)
[2024-08-12 20:01] VITALS: BP 138/60; PULSE 60; RESP 18; TEMP 36.5; O2SAT 97
[2024-08-12] MEDS: PANTOPRAZOLE SODIUM IV 40 MG VIAL IV PUSH (21:14)
[2024-08-13] MEDS: ONDANSETRON INJ 4 MG/2 ML VIAL IV PUSH ×4 (02:36→21:42)
[2024-08-13] MEDS: HYDROmorphone HCL INJ (*CRX) 1 MG/ML SYR IV PUSH ×3 (02:36→14:13)
[2024-08-13 05:07] VITALS: BP 127/56; PULSE 51; RESP 20; TEMP 36.6; O2SAT 99
[2024-08-13 05:45] LABS: Hematocrit 42.9 % (37.0-47.0); Hemoglobin 13.6 g/dL (12.0-15.0); Mean Corpuscular HGB Conc 31.7 g/dl (32-36); Mean Corpuscular Hemoglobin 31.9 pg (26-34); Mean Corpuscular Volume 100.5 fl (80-100); Mean Platelet Volume 10.1 fl (7.4-10.4); Platelet Count Result 214 k/mm3 (150-375); Red Blood Count 4.27 M/mm3 (4.2-5.4); Red Cell Distribution Width 13.7 % (11.5-14.5)
[2024-08-13] MEDS: LEVOTHYROXINE SODIUM 150 MCG TABLET PO (05:54)
[2024-08-13] MEDS: metroNIDAZOLE 500 MG/ISO 100ML 500 MG/100 ML BAG 100 MG IVPB ×3 (05:54→21:02)
[2024-08-13 05:57] LABS: Potassium 4.3 mmol/L (3.4-5.0)
[2024-08-13] MEDS: SODIUM CHLORIDE 0.9% IV 1,000 ML 75 ML IV CONT ×2 (05:59→18:29)
[2024-08-13 06:03] LABS: Alanine Aminotransferase 23 U/L (6-35); Albumin Level 3.6 g/dL (3.5-5.1); Alkaline Phosphatase 87 U/L (38-126); Anion Gap 4 mmol/L (4-12); Aspartate Amino Transferase 29 U/L (14-36); Bilirubin,Total 0.3 mg/dL (0.2-1.3); Blood Urea Nitrogen 7 mg/dL (7-17); Calcium 8.8 mg/dL (8.4-10.2); Carbon Dioxide 27 mmol/L (22-30); Chloride 108 mmol/L (98-107); Estimated CRCL calculation 84 ml/min; Estimated Glomerular Filt Rate > 60; Glucose 106 mg/dL (65-110); Sodium 139 mmol/L (137-145)
[2024-08-13 07:02] VITALS: PULSE 63; RESP 18; O2SAT 97
[2024-08-13] MEDS: FLUTICASONE/SALMETEROL 115-21 MCG INHALER 1 PUFF 2 PUFF INHALATION ×2 (07:02→20:20)
[2024-08-13] MEDS: VILAZODONE 40 MG PO (07:54)
[2024-08-13] MEDS: [UNRECOGNIZED DRUG - OTHER] PO (07:54)
[2024-08-13] MEDS: PANTOPRAZOLE SODIUM IV 40 MG VIAL IV PUSH ×2 (07:54→21:06)
[2024-08-13] MEDS: ASPIRIN 81 MG ENTERIC TABLET PO (07:54)
[2024-08-13] MEDS: oxyBUTYnin CHLORIDE XL 5 MG TAB.ER.24 PO (07:54)
[2024-08-13] MEDS: clonazePAM (*CRX) 0.5 MG TABLET 1 MG PO (08:05)
--- NOTE | 2024-08-13 11:28 | P.PNIM_ITS ---
Progress Note: A&P Assessment and Plan (1) Pancolitis: Code(s): K51.00 - Ulcerative (chronic) pancolitis without complications Status: Acute Assessment and Plan: * CT abdomen showing pancolitis * Flagyl and Rocephin * Pain control * IV fluids * PPI * WBC 4.1, afebrile * Stool studies pending * Monitor electrolytes replenish as needed 08/13/24 * still not tolerating oral intake and N/V * if symptoms unresolved will consult GI for further recommendations * no BM since admission for stool studies (2) Nausea & vomiting: Code(s): R11.2 - Nausea with vomiting, unspecified Status: Acute Assessment and Plan: * not tolerating oral intake * Zofran * may need GI consult if it does not resolve (3) Mild dehydration: Code(s): E86.0 - Dehydration Status: Acute Assessment and Plan: RESOLVED with IV fluids (4) Depression with anxiety: Code(s): F41.8 - Other specified anxiety disorders Status: Acute Assessment and Plan: * Resumed home medications * HX of suicidal attempt * current MDR treatment * extrememly anxious * Antianxiety medication added as needed (5) Posttraumatic stress disorder: Code(s): F43.10 - Post-traumatic stress disorder, unspecified Status: Acute Assessment and Plan: * Current MDR treatment * resumed home medications * daily columbia scale (6) Hypothyroidism: Code(s): E03.9 - Hypothyroidism, unspecified Status: Acute Assessment and Plan: * Resume levothyroxine Plan Code status: Full code per patient DVT prophylaxis: SCDs Stress ulcer prophylaxis: Protonix 40 daily PT/OT notes: Ambulatory Disposition: Patient admitted for pain colitis will continue with IV antibiotic therapy and pain control currently unable to tolerate oral intake well since pain is controlled and patient can not tolerate oral intake she can discharged home. Time Spent With Patient Time with patient: 15 - 25 minutes Subjective Date/time seen: 08/13/24 11:28 Interval history: Patient is a 64-year-old female admitted to the medical unit for further evaluation and treatment of pancolitis. 08/13/2024: Patient still tearful and states pain has not improved she is still unable to tolerate any oral intake. Patient reported no BM since admission abdominal no tenderness to palpation reported episode vomiting last night if symptoms continue will likely need to consult GI for possible EGD for direct visualization labs and vitals are unremarkable. Review of Systems Review of Systems: Reports severe anxiety All systems reviewed & are unremarkable except as noted in HPI and below Exam Narrative: * GENERAL: Alert and oriented x 3. No acute distress. Tearful and anxious pleasant female * EYES: EOMI. No scleral icterus. PERRLA. * HEENT: Moist mucous membranes. * LUNGS: Clear to auscultation bilaterally. No accessory muscle use. * CARDIOVASCULAR: Regular rate and rhythm. No murmur. No JVD. S1-S2 * ABDOMEN: Soft, tenderness and non-distended. No palpable masses. * EXTREMITIES: No edema. Non-tender * SKIN: No rashes or lesions. Skin warm, dry. * NEUROLOGIC: No focal neurological deficits. CN II-XII grossly intact * PSYCHIATRIC: Tearful mood and withdrawn affect. Good judgement and insight. No visual or auditory hallucinations. No suicidal or homicidal ideation. Previous suicidal attempt and HX of PTSD Objective Data Vital Signs Vital Signs: Vital Signs - 24 hr 08/12/24 14:00 08/12/24 20:01 08/12/24 21:19 Temperature 97.6 F 97.7 F Pulse Rate 64 60 Respiratory Rate 18 18 Blood Pressure 120/72 138/60 Pulse Oximetry 96 97 Oxygen Delivery Room Air 08/13/24 05:07 08/13/24 07:02 08/13/24 07:02 Temperature 97.9 F Pulse Rate 51 L 63 63 Respiratory Rate 20 18 18 Blood Pressure 127/56 L Pulse Oximetry 99 97 Oxygen Delivery Room Air 08/13/24 08:00 Temperature Pulse Rate Respiratory Rate Blood Pressure Pulse Oximetry Oxygen Delivery Room Air Intake/Output Intake/Output: Intake & Output 08/10/24 08/11/24 08/12/24 08/13/24 23:59 23:59 23:59 23:59 Intake Total 1337 1334 1990 Output Total 1000 825 Balance 5577 226 2404 Meds/Results Medications: Active Medications Generic Name Dose Route Start Last Admin Trade Name Freq PRN Reason Stop Dose Admin Acetaminophen 650 mg 08/11/24 23:37 08/12/24 05:37 Acetaminophen 325 Mg Tablet PO 650 mg Q6H PRN Administration Mild Pain (1-3) or Fever Aspirin 81 mg 08/12/24 09:00 08/13/24 07:54 Aspirin 81 Mg Enteric Tablet PO 09/11/24 08:59 81 mg DAILY [facility] Administration Clonazepam 0.5 mg 08/12/24 09:00 08/13/24 08:20 Clonazepam (*Crx) 0.5 Mg Tablet PO Not Given DAILY [facility] Clonazepam 1 mg 08/12/24 14:06 08/13/24 08:05 Clonazepam (*Crx) 0.5 Mg Tablet PO 1 mg Q8H PRN Administration Anxiety Hydromorphone HCl 1 mg 08/12/24 14:05 08/13/24 07:55 Hydromorphone Hcl Inj (*Crx) 1 Mg/Ml Syr IV PUSH 1 mg Q3H PRN Administration Pain Rated 7-10 Ceftriaxone Sodium 1 gm in 50 mls @ 100 mls/hr 08/11/24 18:10 08/12/24 18:21 Rocephin 1 Gm/Ns 50 Ml IVPB Infused Q24H [facility] Infusion Metronidazole 500 mg in 100 mls @ 100 mls/hr 08/12/24 05:00 08/13/24 06:54 Flagyl 500 Mg/Iso Soln 100 Ml IVPB Infused Q8HR [facility] Infusion Sodium Chloride 1,000 mls @ 75 mls/hr 08/12/24 14:10 08/13/24 05:59 Normal Saline Iv IV CONT 75 mls/hr .[id number] [facility] Administration Levothyroxine Sodium 150 mcg 08/12/24 06:30 08/13/24 05:54 Levothyroxine Sodium 150 Mcg Tablet PO 150 mcg DAILY@0630 [facility] Administration Multivitamins/Calcium 1 tablet 08/12/24 12:00 08/12/24 11:26 Therapeutic Multivitamins/Minerals Tab (*Bkc) PO Not Given DAILY@1200 [facility] Nonformulary Drug 0 mg 08/12/24 13:10 08/13/24 07:54 Vilazodone 40 Mg PO 09/11/24 13:09 40 mg Tablet DAILY [facility] Administration Ondansetron HCl 4 mg 08/11/24 18:09 08/13/24 07:55 Ondansetron Inj 4 Mg/2 Ml Vial IV PUSH 4 mg Q4H PRN Administration Nausea Oxybutynin Chloride 5 mg 08/12/24 09:00 08/13/24 07:54 Oxybutynin Chloride Xl 5 Mg Tab.Er.24 PO 5 mg DAILY [facility] Administration Pantoprazole Sodium 40 mg 08/12/24 21:00 08/13/24 07:54 Pantoprazole Sodium Iv 40 Mg Vial IV PUSH 40 mg Q12HR [facility] Administration Fluticasone/Salmeterol 2 puff 08/12/24 08:00 08/13/24 07:02 Fluticasone/Salmeterol 115-21 Mcg Inhaler 1 Puff INHALATION 2 puff Q12HRT [place] Administration Trazodone HCl 50 mg 08/11/24 23:39 Trazodone Hcl 50 Mg Tablet PO HS PRN Insomnia Radiology Results: ITS Impressions Abdomen/Pelvis CT 08/11/24 17:34 IMPRESSION: Findings consistent with a pancolitis, as detailed above. In addition, the patient has a small hiatal hernia which includes a portion of the enteric staple line from prior gastric surgery. Labs Labs: Laboratory Results - last 24 hr 08/13/24 05:25 WBC 8.0 RBC 4.27 Hgb 13.6 Hct 42.9 MCV 100.5 H MCH 31.9 MCHC 31.7 L RDW 13.7 Plt Count 214 MPV 10.1 Sodium 139 Potassium 4.3 Chloride 108 H Carbon Dioxide 27 Anion Gap 4 BUN 7 Creatinine 0.80 Estim Creat Clear Calc 84 Estimated GFR > 60 Glucose 106 Calcium 8.8 Total Bilirubin 0.3 AST 29 ALT 23 Alkaline Phosphatase 87 Total Protein 7.0 Albumin 3.6 Quality VTE Prophylaxis VTE prophylaxis: mechanical ordered -Patient's previous records reviewed on admission -ER notes reviewed in detail on admission -discussed all findings and current treatment plan with patient/Family/POA -Consultations reviewed for recommendations -Patient's disposition for safe discharge discussed with case coordinator Dictation performed by [employer] direct speech recognition software, 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 Hospitalist MIPS Advance Care Plan I have confirmed that the patient's Advanced Care Plan is present, code status is documented, or surrogate decision maker is listed in patient medical record.: Yes Medication Reconciliation I have utilized all available resources to obtain, update and review the patients current medications (includes all prescriptions, OTC, herbals, cannabis, and nutritional supplements).: Yes The patient is not eligible for med reconciliation; the patient is in a emergent medical situation where delaying treatment would jeopardize the patients health.: No
[2024-08-13 14:00] VITALS: BP 150/74; PULSE 72; RESP 16; TEMP 36.6; O2SAT 94
[2024-08-13] MEDS: KETOROLAC 30 MG/ML VIAL (*BKC) IV PUSH (16:40)
[2024-08-13] MEDS: HYDROcodone/acetaminophen (*CRX) 5-325 MG TABLET 1 TAB PO ×2 (16:41→21:40)
[2024-08-13 19:33] VITALS: BP 117/57; PULSE 68; RESP 16; TEMP 36.5; O2SAT 94
[2024-08-13] MEDS: traZODone HCL 50 MG TABLET PO (21:05)
[2024-08-14 05:21] VITALS: BP 118/53; PULSE 57; RESP 18; TEMP 36.6; O2SAT 99
[2024-08-14 05:26] LABS: Hematocrit 40.9 % (37.0-47.0); Mean Corpuscular HGB Conc 31.8 g/dl (32-36); Mean Corpuscular Hemoglobin 31.6 pg (26-34); Mean Corpuscular Volume 99.5 fl (80-100); Mean Platelet Volume 10.2 fl (7.4-10.4); Platelet Count Result 207 k/mm3 (150-375); Red Blood Count 4.11 M/mm3 (4.2-5.4); Red Cell Distribution Width 13.5 % (11.5-14.5); White Blood Count 3.7 K/mm3 (4.5-10.0)
[2024-08-14 05:37] LABS: Alanine Aminotransferase 21 U/L (6-35); Albumin Level 3.4 g/dL (3.5-5.1); Alkaline Phosphatase 78 U/L (38-126); Anion Gap 6 mmol/L (4-12); Aspartate Amino Transferase 28 U/L (14-36); Bilirubin,Total 0.2 mg/dL (0.2-1.3); Blood Urea Nitrogen 5 mg/dL (7-17); Calcium 8.7 mg/dL (8.4-10.2); Carbon Dioxide 26 mmol/L (22-30); Chloride 107 mmol/L (98-107); Estimated CRCL calculation 86 ml/min; Estimated Glomerular Filt Rate > 60; Glucose 85 mg/dL (65-110); Potassium 3.7 mmol/L (3.4-5.0); Sodium 139 mmol/L (137-145)
[2024-08-14] MEDS: LEVOTHYROXINE SODIUM 150 MCG TABLET PO (05:42)
[2024-08-14] MEDS: metroNIDAZOLE 500 MG/ISO 100ML 500 MG/100 ML BAG 100 MG IVPB (05:43)
[2024-08-14] MEDS: FLUTICASONE/SALMETEROL 115-21 MCG INHALER 1 PUFF 2 PUFF INHALATION ×2 (08:08→19:53)
[2024-08-14 08:09] VITALS: PULSE 67; RESP 18; O2SAT 97
--- NOTE | 2024-08-14 08:53 | P.PNIM_ITS ---
Progress Note: A&P Assessment and Plan (1) Pancolitis: Code(s): K51.00 - Ulcerative (chronic) pancolitis without complications Status: Acute Assessment and Plan: * CT abdomen showing pancolitis * Flagyl and Rocephin * Pain control * IV fluids * PPI * WBC 4.1, afebrile * Stool studies pending * Monitor electrolytes replenish as needed 08/13/24 * still not tolerating oral intake and N/V * if symptoms unresolved will consult GI for further recommendations * no BM since admission for stool studies 08/14 nausea is better will advance diet today (2) Nausea & vomiting: Code(s): R11.2 - Nausea with vomiting, unspecified Status: Acute Assessment and Plan: * not tolerating oral intake * Zofran * may need GI consult if it does not resolve see above (3) Mild dehydration: Code(s): E86.0 - Dehydration Status: Acute Assessment and Plan: RESOLVED with IV fluids (4) Depression with anxiety: Code(s): F41.8 - Other specified anxiety disorders Status: Acute Assessment and Plan: * Resumed home medications * HX of suicidal attempt * current MDR treatment * extrememly anxious * Antianxiety medication added as needed (5) Posttraumatic stress disorder: Code(s): F43.10 - Post-traumatic stress disorder, unspecified Status: Acute Assessment and Plan: * Current MDR treatment * resumed home medications * daily columbia scale (6) Hypothyroidism: Code(s): E03.9 - Hypothyroidism, unspecified Status: Acute Assessment and Plan: * Resume levothyroxine Plan Code status: Full code per patient DVT prophylaxis: SCDs Stress ulcer prophylaxis: Protonix 40 daily PT/OT notes: Ambulatory Disposition: Patient admitted for pain colitis will continue with IV antibiotic therapy and pain control currently unable to tolerate oral intake well since pain is controlled and patient can not tolerate oral intake she can discharged home. Time Spent With Patient Time with patient: Greater than 35 minutes Subjective Date/time seen: 08/14/24 08:53 Interval history: Patient is a 64-year-old female admitted to the medical unit for further evaluation and treatment of pancolitis. 08/13/2024: Patient still tearful and states pain has not improved she is still unable to tolerate any oral intake. Patient reported no BM since admission abdominal no tenderness to palpation reported episode vomiting last night if symptoms continue will likely need to consult GI for possible EGD for direct visualization labs and vitals are unremarkable. 08/14/24 - pt is seen and examined. She reports her nausea was better and she wants to try soft diet Review of Systems Review of Systems: Reports severe anxiety All systems reviewed & are unremarkable except as noted in HPI and below Exam Narrative: * GENERAL: Alert and oriented x 3. No acute distress. Tearful and anxious pleasant female * EYES: EOMI. No scleral icterus. PERRLA. * HEENT: Moist mucous membranes. * LUNGS: Clear to auscultation bilaterally. No accessory muscle use. * CARDIOVASCULAR: Regular rate and rhythm. No murmur. No JVD. S1-S2 * ABDOMEN: Soft, tenderness and non-distended. No palpable masses. * EXTREMITIES: No edema. Non-tender * SKIN: No rashes or lesions. Skin warm, dry. * NEUROLOGIC: No focal neurological deficits. CN II-XII grossly intact * PSYCHIATRIC: Tearful mood and withdrawn affect. Good judgement and insight. No visual or auditory hallucinations. No suicidal or homicidal ideation. Previous suicidal attempt and HX of PTSD Objective Data Vital Signs Vital Signs: Vital Signs - 24 hr 08/13/24 14:00 08/13/24 19:33 08/13/24 21:06 Temperature 97.8 F 97.7 F Pulse Rate 72 68 Respiratory Rate 16 16 Blood Pressure 150/74 H 117/57 L Pulse Oximetry 94 94 Oxygen Delivery Room Air 08/14/24 05:21 08/14/24 08:09 08/14/24 08:09 Temperature 97.9 F Pulse Rate 57 L 67 Respiratory Rate 18 18 Blood Pressure 118/53 L Pulse Oximetry 99 97 Oxygen Delivery Room Air Intake/Output Intake/Output: Intake & Output 08/11/24 08/12/24 08/13/24 08/14/24 23:59 23:59 23:59 23:59 Intake Total 1337 1334 3467.5 550 Output Total 1000 825 Balance 1449 531 6513.5 550 Meds/Results Medications: Active Medications Generic Name Dose Route Start Last Admin Trade Name Freq PRN Reason Stop Dose Admin Acetaminophen 650 mg 08/11/24 23:37 08/12/24 05:37 Acetaminophen 325 Mg Tablet PO 650 mg Q6H PRN Administration Mild Pain (1-3) or Fever Hydrocodone Bitart/Acetaminophen 1 tab 08/13/24 16:19 08/13/24 21:40 Hydrocodone/Acetaminophen (*Crx) 5-325 Mg Tablet PO 1 tab Q4H PRN Administration Pain Rated 4-6 Aspirin 81 mg 08/12/24 09:00 08/13/24 07:54 Aspirin 81 Mg Enteric Tablet PO 09/11/24 08:59 81 mg DAILY [facility] Administration Clonazepam 0.5 mg 08/12/24 09:00 08/13/24 08:20 Clonazepam (*Crx) 0.5 Mg Tablet PO Not Given DAILY [facility] Clonazepam 1 mg 08/12/24 14:06 08/13/24 08:05 Clonazepam (*Crx) 0.5 Mg Tablet PO 1 mg Q8H PRN Administration Anxiety Hydromorphone HCl 1 mg 08/12/24 14:05 08/13/24 14:13 Hydromorphone Hcl Inj (*Crx) 1 Mg/Ml Syr IV PUSH 1 mg Q3H PRN Administration Pain Rated 7-10 Ceftriaxone Sodium 1 gm in 50 mls @ 100 mls/hr 08/11/24 18:10 08/13/24 18:59 Rocephin 1 Gm/Ns 50 Ml IVPB Infused Q24H [facility] Infusion Metronidazole 500 mg in 100 mls @ 100 mls/hr 08/12/24 05:00 08/14/24 05:43 Flagyl 500 Mg/Iso Soln 100 Ml IVPB 100 mls/hr Q8HR [place] Administration Sodium Chloride 1,000 mls @ 75 mls/hr 08/12/24 14:10 08/13/24 18:29 Normal Saline Iv IV CONT 75 mls/hr .[id number] [place] Administration Levothyroxine Sodium 150 mcg 08/12/24 06:30 08/14/24 05:42 Levothyroxine Sodium 150 Mcg Tablet PO 150 mcg DAILY@0630 [place] Administration Multivitamins/Calcium 1 tablet 08/12/24 12:00 08/13/24 12:57 Therapeutic Multivitamins/Minerals Tab (*Bkc) PO Not Given DAILY@1200 [facility] Nonformulary Drug 0 mg 08/12/24 13:10 08/13/24 07:54 Vilazodone 40 Mg PO 09/11/24 13:09 40 mg Tablet DAILY [place] Administration Ondansetron HCl 4 mg 08/11/24 18:09 08/13/24 21:42 Ondansetron Inj 4 Mg/2 Ml Vial IV PUSH 4 mg Q4H PRN Administration Nausea Oxybutynin Chloride 5 mg 08/12/24 09:00 08/13/24 07:54 Oxybutynin Chloride Xl 5 Mg Tab.Er.24 PO 5 mg DAILY [facility] Administration Pantoprazole Sodium 40 mg 08/12/24 21:00 08/13/24 21:06 Pantoprazole Sodium Iv 40 Mg Vial IV PUSH 40 mg Q12HR [facility] Administration Prochlorperazine Edisylate 10 mg 08/14/24 08:14 Prochlorperazine Edisylate 10 Mg/2 Ml Vial IV PUSH Q6H PRN Nausea And Vomiting Fluticasone/Salmeterol 2 puff 08/12/24 08:00 08/14/24 08:08 Fluticasone/Salmeterol 115-21 Mcg Inhaler 1 Puff INHALATION 2 puff Q12HRT [place] Administration Trazodone HCl 50 mg 08/11/24 23:39 08/13/24 21:05 Trazodone Hcl 50 Mg Tablet PO 50 mg HS PRN Administration Insomnia Radiology Results: ITS Impressions Abdomen/Pelvis CT 08/11/24 17:34 IMPRESSION: Findings consistent with a pancolitis, as detailed above. In addition, the patient has a small hiatal hernia which includes a portion of the enteric staple line from prior gastric surgery. Labs Labs: Laboratory Results - last 24 hr 08/14/24 05:02 WBC 3.7 L RBC 4.11 L Hgb 13.0 Hct 40.9 MCV 99.5 MCH 31.6 MCHC 31.8 L RDW 13.5 Plt Count 207 MPV 10.2 Sodium 139 Potassium 3.7 Chloride 107 Carbon Dioxide 26 Anion Gap 6 BUN 5 L Creatinine 0.80 Estim Creat Clear Calc 86 Estimated GFR > 60 Glucose 85 Calcium 8.7 Total Bilirubin 0.2 AST 28 ALT 21 Alkaline Phosphatase 78 Total Protein 6.0 L Albumin 3.4 L Quality VTE Prophylaxis VTE prophylaxis: mechanical ordered
[2024-08-14] MEDS: clonazePAM (*CRX) 0.5 MG TABLET PO (08:55)
[2024-08-14] MEDS: oxyBUTYnin CHLORIDE XL 5 MG TAB.ER.24 PO (08:55)
[2024-08-14] MEDS: HYDROmorphone HCL INJ (*CRX) 1 MG/ML SYR IV PUSH ×3 (08:55→22:27)
[2024-08-14] MEDS: ASPIRIN 81 MG ENTERIC TABLET PO (08:55)
[2024-08-14] MEDS: PANTOPRAZOLE SODIUM IV 40 MG VIAL IV PUSH ×2 (08:55→21:14)
[2024-08-14] MEDS: PROCHLORPERAZINE EDISYLATE 10 MG/2 ML VIAL IV PUSH (08:56)
[2024-08-14] MEDS: [UNRECOGNIZED DRUG - OTHER] PO (08:58)
[2024-08-14] MEDS: VILAZODONE 40 MG PO (08:58)
[2024-08-14] MEDS: SODIUM CHLORIDE 0.9% IV 1,000 ML 75 ML IV CONT (10:45)
[2024-08-14] MEDS: THERAPEUTIC MULTIVITAMINS/MINERALS TAB (*BKC) 1 TABLET PO (12:50)
[2024-08-14 14:00] VITALS: BP 131/63; PULSE 64; RESP 14; TEMP 36.7; O2SAT 100
[2024-08-14] MEDS: ONDANSETRON INJ 4 MG/2 ML VIAL IV PUSH ×2 (16:34→22:27)
[2024-08-14] MEDS: AMOXICILLIN/CLAVULANATE K 875-125 MG TAB 1 TABLET PO (18:05)
[2024-08-14 19:54] VITALS: PULSE 65; RESP 18
[2024-08-14 19:56] VITALS: O2SAT 94
[2024-08-14 21:03] VITALS: BP 133/67; PULSE 64; RESP 18; TEMP 36.1; O2SAT 94
[2024-08-14] MEDS: clonazePAM (*CRX) 0.5 MG TABLET 1 MG PO (23:31)
[2024-08-14] MEDS: traZODone HCL 50 MG TABLET PO (23:31)
[2024-08-15] MEDS: SODIUM CHLORIDE 0.9% IV 1,000 ML 75 ML IV CONT (00:15)
[2024-08-15] MEDS: LEVOTHYROXINE SODIUM 150 MCG TABLET PO (05:35)
[2024-08-15 06:00] VITALS: BP 137/55; PULSE 60; RESP 16; TEMP 36.4; O2SAT 99
[2024-08-15 06:11] LABS: Hematocrit 43.1 % (37.0-47.0); Hemoglobin 13.2 g/dL (12.0-15.0); Mean Corpuscular HGB Conc 30.6 g/dl (32-36); Mean Corpuscular Hemoglobin 30.8 pg (26-34); Mean Corpuscular Volume 100.7 fl (80-100); Platelet Count Result 210 k/mm3 (150-375); Red Blood Count 4.28 M/mm3 (4.2-5.4); Red Cell Distribution Width 13.7 % (11.5-14.5); White Blood Count 3.9 K/mm3 (4.5-10.0)
[2024-08-15 06:21] LABS: Alanine Aminotransferase 25 U/L (6-35); Albumin Level 3.4 g/dL (3.5-5.1); Alkaline Phosphatase 82 U/L (38-126); Anion Gap 5 mmol/L (4-12); Aspartate Amino Transferase 36 U/L (14-36); Bilirubin,Total 0.3 mg/dL (0.2-1.3); Blood Urea Nitrogen 7 mg/dL (7-17); Calcium 8.6 mg/dL (8.4-10.2); Carbon Dioxide 27 mmol/L (22-30); Chloride 108 mmol/L (98-107); Estimated CRCL calculation 70 ml/min; Estimated Glomerular Filt Rate 56; Glucose 88 mg/dL (65-110); Potassium 3.6 mmol/L (3.4-5.0); Sodium 140 mmol/L (137-145)
[2024-08-15 08:03] LABS: Toxigenic C. Diff NEGATIVE (NEGATIVE)
[2024-08-15] MEDS: FLUTICASONE/SALMETEROL 115-21 MCG INHALER 1 PUFF 2 PUFF INHALATION (08:05)
[2024-08-15] MEDS: ASPIRIN 81 MG ENTERIC TABLET PO (09:04)
[2024-08-15] MEDS: oxyBUTYnin CHLORIDE XL 5 MG TAB.ER.24 PO (09:04)
[2024-08-15] MEDS: AMOXICILLIN/CLAVULANATE K 875-125 MG TAB 1 TABLET PO (09:04)
[2024-08-15] MEDS: PANTOPRAZOLE SODIUM IV 40 MG VIAL IV PUSH (09:04)
[2024-08-15] MEDS: VILAZODONE 40 MG PO (09:05)
[2024-08-15] MEDS: [UNRECOGNIZED DRUG - OTHER] PO (09:05)
[2024-08-15] MEDS: clonazePAM (*CRX) 0.5 MG TABLET 1 MG PO (09:08)
--- NOTE | 2024-08-15 10:21 | P.DS_ITS ---
DS: Admitting Diagnosis Discharge Date 08/15/2024 Admitting Diagnosis Pancolitis DS: Discharge Diagnosis Discharge Diagnosis (1) Pancolitis: Code(s): K51.00 - Ulcerative (chronic) pancolitis without complications Status: Acute (2) Nausea & vomiting: Code(s): R11.2 - Nausea with vomiting, unspecified Status: Acute (3) Mild dehydration: Code(s): E86.0 - Dehydration Status: Acute (4) Depression with anxiety: Code(s): F41.8 - Other specified anxiety disorders Status: Acute (5) Posttraumatic stress disorder: Code(s): F43.10 - Post-traumatic stress disorder, unspecified Status: Acute (6) Hypothyroidism: Code(s): E03.9 - Hypothyroidism, unspecified Status: Acute Plan Disposition: Discharged to home DS: Summary Hospital Course Reason for hospitalization: pancolitis Hospital Course: Patient was a 64-year-old female with previous history of a gastric stapling, hypothyroidism, anxiety, depression, PTSD, suicidal attempt who had initially presented to the emergency department with complaint abdominal pain. In the emergency department patient was found to have pancolitis since she was admitted to the medical unit for further evaluation and treatment. Patient with no leukocytosis and afebrile but unable to tolerate oral intake at time of admission. Patient was started on IV fluids, pain control, ppi, Zofran, and IV Flagyl and Rocephin. Patient with extreme MDD and anxiety resumed her anti anxiety medication and added a p.r.n. patient would have episodes of forgetfulness is eating pain had not been told her that it ordered been reviewed and educated she does report she is currently doing EMDR treatments for her MDD and PTSD. Patient updated daily that she had infection in her intestines still continued to be tearful and anxious however patient did start tolerating his oral intake and was able to advance diet to remained afebrile and with normal WBC. Patient was discharged home on oral antibiotics for colitis encouraged to advance diet as tolerated with good oral hydration to was instructed to follow- up with GI outpatient once infectious process had resolved. Status at Discharge Functional status at discharge: independent ambulation Overall status at discharge: patient is progressing back to baseline Time Spent with Patient Time attestation: Total time spent providing and/or coordinating discharge services: Time spent: Greater than 30 minutes Exam Narrative: * GENERAL: Alert and oriented x 3. No acute distress. Tearful and anxious pleasant female * EYES: EOMI. No scleral icterus. PERRLA. * HEENT: Moist mucous membranes. * LUNGS: Clear to auscultation bilaterally. No accessory muscle use. * CARDIOVASCULAR: Regular rate and rhythm. No murmur. No JVD. S1-S2 * ABDOMEN: Soft, tenderness Imrpoving and non-distended. No palpable masses. * EXTREMITIES: No edema. Non-tender * SKIN: No rashes or lesions. Skin warm, dry. * NEUROLOGIC: No focal neurological deficits. CN II-XII grossly intact * PSYCHIATRIC: Tearful mood and withdrawn affect. Good judgement and insight. No visual or auditory hallucinations. No suicidal or homicidal ideation. Previous suicidal attempt and HX of PTSD DS: Data Data Completed and Pending Labs on day of discharge: Labs from last 24 hours 08/15/24 08/15/24 06:43 05:42 WBC 3.9 L RBC 4.28 Hgb 13.2 Hct 43.1 MCV 100.7 H MCH 30.8 MCHC 30.6 L RDW 13.7 Plt Count 210 MPV 10.0 Sodium 140 Potassium 3.6 Chloride 108 H Carbon Dioxide 27 Anion Gap 5 BUN 7 Creatinine 1.00 Estim Creat Clear Calc 70 Estimated GFR 56 L Glucose 88 Calcium 8.6 Total Bilirubin 0.3 AST 36 ALT 25 Alkaline Phosphatase 82 Total Protein 6.0 L Albumin 3.4 L C. difficile (PCR) Negative Preliminary micro results at discharge 08/11/24 19:09 Blood Culture - Preliminary Blood 08/11/24 18:41 Blood Culture - Preliminary Blood Imaging Radiologist's impression: CLINICAL INDICATION: Epigastric pain with diarrhea and emesis. Personal history of gastric bypass surgery. COMPARISON: None. TECHNIQUE: Multiple contiguous axial images of the abdomen and pelvis were performed following the administration of with 100 mL Omnipaque-350 intravenous contrast The dose-length product (DLP) was 1371.03 mGy-cm. Automated exposure control and iterative reconstruction technique were employed. FINDINGS/OBSERVATIONS: Visualized lower thorax: Trace bibasilar atelectasis. The heart is of normal size, without pericardial effusion. Small hiatal hernia, inclusive of a portion of the staple line from prior gastric bypass surgery. Liver: The liver is enlarged measuring 22 cm in longitudinal dimension. Focal fatty sparing is identified within segment 4/5 of the liver. Gallbladder and biliary system: The gallbladder is surgically absent. Pancreas: Fatty atrophy of the pancreas. Spleen: The spleen enhances homogeneously and is not enlarged measuring 10 cm in longitudinal dimension. Kidneys: The bilateral kidneys enhance symmetrically without hydronephrosis or renal calculi. Adrenal glands: Unremarkable. Gastrointestinal tract: Mural thickening with edema is identified throughout the colon with surrounding inflammatory change, consistent with a tavera colitis. Moderate hiatal hernia which is inclusive of a portion of the enteric staple line from prior gastric bypass surgery. The excluded stomach contains fluid and is primarily decompressed. Appendix: The appendix is minimally distended measuring 7.6 mm in caliber but contains air at its tip. This is best identified on axial images, 113 through 120. The increase in caliber and appearance of the proximal appendix is likely secondary to the inflammation within the colon, rather than a primarily inflamed appendix. Vasculature: Bulky calcification within the abdominal aorta without aneurysmal dilatation. Lymph nodes: No pathologically enlarged or morphologically suspicious lymph nodes within the retroperitoneum or at the root of the mesentery. Pelvic structures: Evaluation of the deep pelvis is markedly limited by metallic streak artifact from the patient's bilateral hip prostheses. Body wall and musculoskeletal: Complex fat-containing hernia involving the supraumbilical abdominal wall. Compression of the superior endplate of L1 is identified, age indeterminate. Moderate facet hypertrophy is present. No additional significant degenerative disease within the remainder of the lower thoracic and lumbosacral spines. IMPRESSION: Findings consistent with a pancolitis, as detailed above. In addition, the patient has a small hiatal hernia which includes a portion of the enteric staple line from prior gastric surgery. Discharge Plan Discharge Attending physician on discharge: Obed Shannon Discharging Clinician: Leigh Thorne Anticipated Discharge Date/Time: 08/15/24 10:14 Patient Disposition: Home, Self-Care Activity: may shower and as tolerated Diet: as tolerated Discharge Instructions: You are being discharged home after treatment for Colitis and infection in your intestinal tract. I have prescribed antibiotic please complete as prescribed I have also prescribed Pantoprazole for prophylactic treatment and reduce risk of gastric ulcer. Please follow up with your primary care physician and recommend a referral to GI for further evaluation outpatient once infection has resolved. How can you care for yourself at home? ? Keep track of any new symptoms or changes in your symptoms. ? Rest until you feel better. ? Be safe with medicines. Take your medicines exactly as prescribed. Call your doctor if you think you are having a problem with your medicine. ? Do not drive after taking a prescription pain medicine. ? Ensure to follow-up with primary care physician as indicated and provide updated medication list provided to you at discharge. When should you call for help? Call 911 anytime you think you may need emergency care. For example, call if: ? You passed out (lost consciousness). Call your doctor now or seek immediate medical care if: ? You have new symptoms like fever, difficulty breathing, Chest pain, vomiting, or rash. ? You have new or different pain. ? You are confused and are having trouble thinking clearly. ? Your symptoms are getting worse. Watch closely for changes in your health, and be sure to contact your doctor if: ? You do not get better as expected. Patient Instructions: Antibiotic Form, Ulcerative Colitis (DC), Colitis (ED) Patient Language: Sammarinese Stand Alone Forms: General Discharge Information Follow-up/Referrals: Kayla,Ni Gupta APRN [Primary Care Provider] - 2 Weeks Discharge Medications: New hydrocodone-acetaminophen 5-325 mg Tablet 1 tablet PO Q4H PRN (Reason: Pain Rated 4-6) Qty: 15 0RF amoxicillin-pot clavulanate 875-125 mg tablet 1 tablet PO Q12H Qty: 5 0RF pantoprazole 40 mg tablet,delayed release (DR/EC) 40 mg PO HS Qty: 30 0RF Continued acetaminophen 325 mg Tablet 650 mg PO PRN PRN (Reason: Pain (Scale Score 1-3)) clonazepam 0.5 mg tablet 0.5 mg PO DAILY levothyroxine 150 mcg tablet 150 mcg PO DAILY oxybutynin chloride 5 mg tablet extended release 24hr 5 mg PO DAILY aspirin 81 mg Tablet 81 mg PO DAILY albuterol sulfate 90 mcg/actuation HFA aerosol inhaler 2 inh INHALATION PRN budesonide-formoterol [Symbicort] 160-4.5 mcg/actuation HFA aerosol inhaler 1 inh INHALATION BID multivit with min-folic acid 0.4 mg Tablet 1 tablet PO DAILY vilazodone 40 mg tablet 40 mg PO DAILY Date of admission: 08/13/24 13:06 Primary Care Provider: SummerNi Admitting Provider: Chris Gonzales Attending physician on admission: Leigh Thorne Condition: Stable Quality VTE Prophylaxis VTE prophylaxis: mechanical ordered -Patient's previous records reviewed on admission -ER notes reviewed in detail on admission -discussed all findings and current treatment plan with patient/Family/POA -Consultations reviewed for recommendations -Patient's disposition for safe discharge discussed with disease case manager Dictation performed by [employer] direct speech recognition software, therefore technical sales representative variants and typographical errors may occur. Hospitalist MIPS Heart Failure (Exclusion) Patient has history of Heart Transplant or Left Ventricular Assistive Device?: No IF YES, STOP HERE Heart Failure (Qualifier) Patient has current or prior documentation of LVEF less than or equal to 40%, or mod/servere depressed LVSF?: No IF NO, STOP HERE
== END 2024-08-15 11:40 | disposition home or self-care (01) | DRG 387 ==
LOC: ANHED 19:32 → ANH2MED 19:52
PROVIDERS: Physician Assistant; Registered Nurse; Admitting Provider General Practice; Emergency Provider Emergency Medicine; PCP Nurse Practitioner Family; Visit Provider Nurse Practitioner Family
DX: K51.00 Ulcerative (chronic) pancolitis without complications (principal); E86.0 Dehydration; R82.71 Bacteriuria; E03.9 Hypothyroidism, unspecified; F43.10 Post-traumatic stress disorder, unspecified; F41.8 Other specified anxiety disorders; J44.9 Chronic obstructive pulmonary disease, unspecified; R11.2 Nausea with vomiting, unspecified; Z98.84 Bariatric surgery status; Z90.49 Acquired absence of other specified parts of digestive tract; Z91.51 Personal history of suicidal behavior; Z96.643 Presence of artificial hip joint, bilateral; Z87.891 Personal history of nicotine dependence
CPT/HCPCS: 36415; 74177; 80048; 80053; 81001; 83690; 83735; 84439; 84443; 84480; 84484; 85025; 85027; 85610; 85730; 87040; 87045; 87086; 87427; 87449; 87493; 94640; 96361; 96366; 96367; 96374; 96375; 96376; 99285; A9270; G0378; J0696; J0780; J1171; J1836; J1885; J2270; J2405; J2470; J7030; J7042; Q9967